=== PATIENT | male | born 1970 | race Two or more races ===

== ENCOUNTER 2021-05-30 08:37 | Outpatient (REF) | payer MEDICAID, SELFPAY ==
--- NOTE | ~2021-05-30 | XR_ITS ---
EXAMINATION: XR HAND, LEFT CLINICAL INFORMATION: Pain COMPARISON: None TECHNIQUE: PA, lateral, and oblique views of the left hand. FINDINGS: The bones and soft tissues are normal. No fracture. Alignment is anatomic. Joint spaces are maintained. No erosions or soft tissue calcifications. XR/XR hand LT min 3V IMPRESSION: Normal left hand.
== END 2021-05-30 08:38 | disposition home or self-care (01) ==
LOC: HO.HOSX 08:37
PROVIDERS: Visit Provider Orthopaedic Surgery
DX: M65.332 Trigger finger, left middle finger (principal); M79.642 Pain in left hand
CPT/HCPCS: 73130; 99202

== ENCOUNTER 2021-06-15 10:36 | Day surgery (SDC) | payer MEDICAID, SELFPAY ==
[2021-06-15 11:12] VITALS: BP 137/98; PULSE 76; RESP 18; TEMP 36.7; O2SAT 98
[2021-06-15 11:14] VITALS: BMI 28.3
--- NOTE | 2021-06-15 13:13 | MHC.SHP ---
Pre-Procedural Eval Section A Date of Service: 06/15/21 The patient is an INPATIENT: No Changes since office visit: No Cold of Flu in the past 2 weeks, No New Medical Problems, No Changes in Medication and No Patient answered all questions The History & Physical has been completed within 30 days and I have reviewed it.: Yes Section B Chief Complaint: trigger finger Allergies: Allergies Allergy/AdvReac Type Severity Reaction Status Date / Time No Known Allergies Allergy Verified 05/30/21 13:23 Plan I have reviewed the history and physical and performed a pertinent physical examination on my patient. No changes have occurred unless specified.
--- NOTE | 2021-06-15 13:14 | W.PM.OPN ---
Operative Note Operative Note Date of Service: 06/15/21 Narrative: Operative Note Preop diagnosis: 1. Left middle finger Trigger finger Postop diagnosis: 1. left middle finger Trigger finger Procedure: 1. left middle finger A1 dave release Surgeon: Roselyn Sr MD Anesthesia: local block using 1% lidocaine with epinephrine Findings: No locking or catching after A1 dave release EBL: Less than 5 mL Tourniquet time: None Specimens: None Complications: None Disposition: Brought to recovery room in stable condition Plan: Follow-up for 10-14 days for wound check and suture removal A prescription for 5 tablets of Vicodin 5/325 was hand written for this patient. Indications: The patient is 51 years old, with a left middle finger trigger finger that has been unresponsive to nonoperative management. The risks and benefits of operative treatment including but not limited to risk of damage to blood vessels, nerves, tendons, infection, persistent pain, persistent symptoms, recurrence or possible need for additional surgery were discussed with the patient and the patient wishes to proceed with surgery. Procedure: Once consent was obtained a local block was performed in the preop area using a combination of 1% lidocaine with epinephrine. The patient was then brought back to the operating suite and placed on the operative table in supine position. A tourniquet was applied to the proximal aspect of the left upper extremity and the limb was prepped and draped in a standard surgical fashion. Once assured that we had a good block, a 1.5 cm oblique incision was made centered over the A1 dave of the left middle finger . The incision was made through the skin to the subcutaneous tissues using a #15 blade. Careful dissection was made down to the level of the A1 dave using tenotomy scissors, with care being taken to protect the nearby neurovascular structures. A longitudinal incision was made in the A1 dave 1st using a #15 blade, then using tenotomy scissors under direct visualization. The A1 dave was noted to be thickened. Following our A1 dave release, we no longer saw any locking or catching of the digit with flexion and extension. Once satisfied with our A1 dave release the wound was copiously irrigated with normal saline and hemostasis was obtained with a brief period of local pressure. The skin edges were reapproximated with some 5.0 nylon suture material and a sterile dressing was applied. The patient appears to have tolerated the procedure well and with no complications. All digits were well vascularized at the conclusion of the case.
[2021-06-15 13:45] VITALS: BP 130/88; PULSE 73; RESP 16; TEMP 36.8; O2SAT 95
== END 2021-06-15 13:59 | disposition home or self-care (01) ==
PROVIDERS: PCP Internal Medicine; Visit Provider Orthopaedic Surgery
PROC: (CPT 26055; principal; 2021-06-15 13:10)
DX: M65.332 Trigger finger, left middle finger (principal); I10 Essential (primary) hypertension; Z79.899 Other long term (current) drug therapy
CPT/HCPCS: 26055; J0171

== ENCOUNTER → 2021-06-28 11:03 | Outpatient (BNVA) | payer MEDICAID, SELFPAY | PROVIDERS: PCP Internal Medicine; Referring Provider Internal Medicine; Visit Provider Physician Assistant | DX: Z47.89 Encounter for other orthopedic aftercare (principal); Z87.39 Personal history of other diseases of the musculoskeletal system and connective tissue; Z12.11 Encounter for screening for malignant neoplasm of colon; I10 Essential (primary) hypertension | CPT/HCPCS: 99202; 99212 ==

== ENCOUNTER 2021-07-02 18:38 | Emergency (ER) | payer MEDICAID, SELFPAY ==
[2021-07-02 18:50] VITALS: BP 137/100; PULSE 85; RESP 18; TEMP 36.9; O2SAT 97; BMI 28.0
--- NOTE | 2021-07-02 20:45 | ED.GENADULT ---
HPI - General Adult General Chief complaint: General Medical Stated complaint: allergic reaction Source: patient Mode of arrival: ambulatory Limitations: language barrier History of Present Illness HPI narrative: 51-year-old male presents with sinus pressure, green thick purulent mucus, and bilateral eye swelling and irritation with exudates. Onset (ago): day(s) (4) Location: head, face and eyes Radiation: non-radiation Severity: moderate Severity scale (1-10): 5 Quality: burning and aching Pain Consistency: constant Relieving factors: none Exacerbating factors: movement Associated symptoms: denies other symptoms Treatments prior to arrival: other (Allergy medications) Related Data Home Medications Medication Instructions Recorded Confirmed chlorthalidone 25 mg tablet 25 mg PO DAILY 05/30/21 lisinopril 40 mg tablet 40 mg PO DAILY 05/30/21 nifedipine 60 mg tablet,extended 60 mg PO DAILY 05/30/21 release 24 hr Previous Rx's Medication Instructions Recorded bisacodyl 5 mg tablet,delayed 10 mg PO ONCE 1 Days #2 tab 06/28/21 release (Dulcolax (bisacodyl)) polyethylene glycol 3350 17 238 g PO ONCE 1 Days #238 g 06/28/21 gram/dose oral powder (Miralax) amoxicillin 875 mg-potassium 1 tab PO Q12H 7 Days #14 tab 07/02/21 clavulanate 125 mg tablet erythromycin 5 mg/gram (0.5 %) eye 0.5 inch OPHTHALMIC (EYE) QID 7 07/02/21 ointment Days #1 g Allergies Allergy/AdvReac Type Severity Reaction Status Date / Time No Known Allergies Allergy Verified 07/02/21 18:50 Review of Systems Review of Systems: Constitutional: No Fever, No Chills ENT/Mouth: Positive sinus head pressure, No Ear Pain, No Hoarseness, No sore throat Eyes: Positive Eye Pain, No Swelling, positive Redness, No Foreign Body Cardiovascular: No Chest Pain, No SOB Respiratory: No Cough, No Dyspnea Gastrointestinal: No Nausea, No Vomiting, No Diarrhea, No abdominal Pain Genitourinary: No Dysuria, No Hematuria Musculoskeletal: positive joint pain, No Myalgias, No Joint Swelling Skin: No Skin lacerations, No rash Neuro: No Weakness, No Numbness, No Paresthesias, No Loss of Consciousness, No Dizziness, No Headache Psych: No Anxiety/Panic, No Depression Heme/Lymph: no easy bruising, no Lymphadenopathy Endocrine: No Polyuria, No Polydipsia Yes all other systems are reviewed and are negative [facility] Past Medical History Attestation statement: The following information was validated with the patient. 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 Oriented X3. No acute distress. Eyes: Pupils equal, round and reactive to light. Bilateral conjunctivitis with purulent exudates. ENT: Pharynx normal. Green nasal mucus. Ethmoid and frontal sinus tenderness to palpation. Neck: Normal inspection. Neck supple. CVS: Normal heart rate and rhythm. Pulses normal. Respiratory: No respiratory distress. Breath sounds normal. Abdomen: Soft and nontender. Skin: Skin warm and dry. Normal skin color. Normal skin turgor. Extremities: No lower extremity edema. Gait well balanced well coordinated. Neuro: No motor deficit. No sensory deficit. Cranial nerves 2-12 intact. Course Course Course Narrative: 51-year-old male presents with upper respiratory symptoms consistent with conjunctivitis and sinusitis. Bilateral conjunctivae are erythematous with purulent exudates noted. Mucous is green with sinus pressure. Consistent with sinusitis. Allergy medications have been ineffective. Will treat with erythromycin bilaterally and Augmentin for sinusitis. 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 Google translate utilized for discharge instructions. Patient verbalized understanding of and agrees to plan of care to discharge home. Verbalized understanding of signs and symptoms indicating need for emergent intervention Medical Decision Making Differential Diagnosis Differential Diagnosis: Influenza, COVID, conjunctivitis, sinusitis, allergic reaction Medical Records Medical records reviewed: Yes I reviewed the patient's medical records. Lab Data Lab results reviewed: Yes I reviewed the patient's lab results. Labs: Lab Results 07/02/21 07/02/21 Range/Units 21:22 21:22 COVID-19 (NAVA) Negative (Negative) COVID-19 Clin Com See Note Influenza Type A (LUIS DANIEL) Negative (Negative) Influenza Type B (LUIS DANIEL) Negative (Negative) Influenza A & B Note See Note Discharge Plan Discharge Clinical Impression: Sinusitis, Conjunctivitis Patient Disposition: Home, Self-Care Instructions: Sinusitis (ED), Conjunctivitis (ED) Additional Instructions: Fue evaluado por presi?n en la lyndsey, enrojecimiento ocular bilateral y lagrimeo con exudado pegajoso. Tiene sinusitis que estamos tratando con Augmentin 875 mg cada 12 horas marilyn los pr?ximos 7 d?as. Tienes conjuntivitis bilateral. Lo estamos tratando con pomada oft?lmica de eritromicina. Aplique ivan negro?a cantidad cada 6 horas en cada omar marilyn los pr?ximos 7 d?as. L?vese las radha antes y despu?s de aplicar el minerva?ento para los ojos. Las pruebas de influenza y COVID fueron negativas. Seguimiento con el m?dico de atenci?n primaria esta semana. Fabian por elegir kobe departamento de emergencias para villareal evaluaci?n. Por favor, mago un seguimiento con el m?dico de atenci?n primaria seg?n sea necesario. Regrese al departamento de emergencias por cualquier s?ntoma nuevo, preocupante o que empeore You were evaluated for head pressure, bilateral eye redness and tearing with goopy exudate. You have sinusitis which we are treating with Augmentin 875 mg every 12 hours for the next 7 days. You have bilateral conjunctivitis. We are treating you with erythromycin eye ointment. Apply small amount every 6 hours to each eye for the next 7 days. Wash your hands before and after applying the eye ointment. Influenza and COVID test were negative. Follow-up with primary care physician this week. Thank you for choosing this emergency department for evaluation. Please follow-up with primary care physician as needed. Return to the emergency department for any new, concerning, or worsening symptoms. Prescriptions: New amoxicillin-pot clavulanate 875-125 mg tablet 1 tab PO Q12H 7 Days Qty: 14 0RF erythromycin 5 mg/gram (0.5 %) ointment 0.5 inch ophthalmic (eye) QID 7 Days Qty: 1 0RF Rx Instructions: Please dispense 2 tubes. One for each eye. Apply small amount to each eye every 6 hours for 7 days. No Action bisacodyl [Dulcolax (bisacodyl)] 5 mg tablet,delayed release (DR/EC) 10 mg PO ONCE 1 Days Qty: 2 0RF Rx Instructions: Take 2 tablets by mouth at 12:00pm the day before your procedure. polyethylene glycol 3350 [Miralax] 17 gram/dose powder 238 g PO ONCE 1 Days Qty: 238 0RF Rx Instructions: Take as directed by mouth the day before your procedure. lisinopril 40 mg tablet 40 mg PO DAILY 0RF chlorthalidone 25 mg tablet 25 mg PO DAILY 0RF nifedipine 60 mg tablet extended release 24hr 60 mg PO DAILY 0RF Interventions: ED Discharge Assessment Last Done: 07/02/21 22:31 Discharge Date/Time: 07/02/21 22:33
[2021-07-02 21:56] LABS: COVID-19 Test Negative (Negative); IDNOW Serial# 08D9AD1C; Influenza A Negative (Negative); Influenza B2 Negative (Negative)
[2021-07-02] MEDS: Amoxicillin/Potassium Clav 875 MG TABLET PO (22:00)
[2021-07-02] MEDS: Erythromycin Base 0.5% Oph Oin 1 GM TUBE 1 CM EYE-LEFT ×2 (22:01)
== END 2021-07-02 22:33 | disposition home or self-care (01) ==
PROVIDERS: Nurse Practitioner Family; Emergency Provider Internal Medicine; PCP Internal Medicine
DX: J32.9 Chronic sinusitis, unspecified (principal); H10.9 Unspecified conjunctivitis; Z20.822 Contact with and (suspected) exposure to COVID-19
CPT/HCPCS: 87502; 87635; 99283

== ENCOUNTER 2021-10-25 08:25 | Day surgery (SDC) | payer MEDICAID, SELFPAY ==
[2021-10-19 14:39] VITALS: BMI 28.3
[2021-10-25 08:40] VITALS: BMI 26.9
--- NOTE | 2021-10-25 08:53 | P.CONAN_ITS ---
[facility] Active Problems Active Problems: All Active Problems (Updated 07/03/21 @ 00:02 by Background Daemon) Trigger finger, left middle finger (Acute) Encounter for screening colonoscopy (Acute) High blood pressure (Acute) Past Medical History Medical History (Updated 07/03/21 @ 00:02 by Background Daemon) High blood pressure Family History Family History Father HTN (hypertension) Brother Cancer Family history of problems with anesthesia: No Surgical History Surgical History (Updated 10/19/21 @ 14:44 by Jackie Salomon RN) Hx of hand surgery History of Problems with Anesthesia: No Social History Social History Patient Tobacco Use Status: Never used Tobacco Use of substances other than those prescribed or required for medical reasons: No Are you DNR?: No Advance Directives: No Advance Directives Information Provided: Yes Current occupational status: employed Current occupation: [employer] Allergies Allergy/AdvReac Type Severity Reaction Status Date / Time No Known Allergies Allergy Verified 07/02/21 18:50 Active Medications: Current Medications Lactated Ringer's (Lr) 1,000 mls @ 50 mls/hr IVCONT .Q20H LIDIA Home Medications Medication Instructions Recorded Confirmed Last Taken Type chlorthalidone 25 mg tablet 25 mg PO DAILY 05/30/21 10/19/21 10/25/21 History lisinopril 40 mg tablet 40 mg PO DAILY 05/30/21 10/19/21 06/15/21 History nifedipine 60 mg tablet,extended 60 mg PO DAILY 05/30/21 10/19/21 10/25/21 History release 24 hr Exam Exam Date and Time: October 25, 2021 0853 Height,Weight and Vital Signs: Height 5 ft 9 in Weight 82.554 kg Airway Mallampati Class: II TM Dist: >3cm Neck ROM: Full Heart: rrr Lungs: cta Assessment and Plan Assessment Anesthesia Assessment: Anesthesia Plan Discussed and Chart Reviewed Final Anesthetic Review Family History of Problems with Anesthesia: No History of Problems with Anesthesia: No NPO: Yes ASA Class: II Final Preanesthetic Review: No Changes in Pt Med Stat, Meds/Allgs Chart Reviewed and Consent Obtained/Reviewed Patient Risk: Intermediate Procedure Risk: Intermediate Anesthetic Plan Anesthetic Plan: MAC: Disposition: Standard PACU
[2021-10-25 08:55] VITALS: BP 135/94; PULSE 99; RESP 16; TEMP 36.3; O2SAT 96
[2021-10-25] MEDS: Lactated Ringers 1,000 ML 50 ML IVCONT (09:02)
--- NOTE | 2021-10-25 09:05 | MHC.SHP ---
Pre-Procedural Eval Section A Date of Service: 10/25/21 Section B Chief Complaint: screening Relevant Family History (Specify if Yes): No Relevant Social History: None Present Medications: see Short Stay Collaborative assessment Medical History: Significant History (High blood pressure) History of Previous Operations: Relevant previous surgery/procedure and date(s) (hand surgery) Allergies: Allergies Allergy/AdvReac Type Severity Reaction Status Date / Time No Known Allergies Allergy Verified 07/02/21 18:50 Review of Systems Sugical H&P ROS: Negative: Constitution, Cardiovascular, Respiratory, Neurological, Psychiatric, Hem-Onc, Allergic/Immunologic, Gastrointestinal, Genitourinary, Musculoskeletal, Integumentary, Endocrine and Eyes/Ears/Nose/Throat Exam Surgical H&P Exam: Normal: HEENT, Normal: Heart, Normal: Lungs, Normal: Extremities, Normal: Abdomen, Normal: Skin and Normal: Neurological Plan Diagnosis/Plan: Unchanged I have reviewed the history and physical and performed a pertinent physical examination on my patient. No changes have occurred unless specified.
--- NOTE | 2021-10-25 09:07 | W.PM.OPN ---
Operative Note Operative Note Date of Service: 10/25/21 Narrative: Operative Information Procedure Description: Colonoscopy Indication: screening Anesthesia: MAC COLONOSCOPY Instrument: Olympus variable stiffness pediatric scope 190L Colonoscopy Monitoring: Vital signs and clinical assessment, continuous EKG monitoring, Pulse oximetry, Carbon Dioxide monitoring and blood pressure monitoring were done throughout the procedure. Colon withdrawal time was 8 minutes. Procedure: The patient was placed in the left lateral decubitis position and pre-procedure medications were administered. After a digital rectal examination of the ano-rectum, the video colonoscope was inserted into the rectum and advanced through the colon to the cecum/TI. The colonoscope was slowly withdrawn in a retrograde panoramic fashion and the colon mucosa was carefully examined including a retroflexed view of the rectum. Findings and interventions are described below. Procedure Difficulty: easy Findings: Terminal Ileum-normal Right sided retroflexion-- normal Cecum:normal Ascending Colon: normal Transverse Colon -normal Descending Colon:normal Sigmoid Colon: normal Rectum: Retroflexion with small internal hemorrhoids, grade I Anorectum - normal Colon preparation: [place] Bowel Preparation Scale Right colon; 3 Transverse colon: 3 Left colon; 3 (0 = Unprepared colon segment with mucosa not seen due to solid stool that cannot be cleared. 1 = Portion of mucosa of the colon segment seen, but other areas of the colon segment not well seen due to staining, residual stool and/or opaque liquid. 2 = Minor amount of residual staining, small fragments of stool and/or opaque liquid, but mucosa of colon segment seen well. 3 = Entire mucosa of colon segment seen well with no residual staining, small fragments of stool or opaque liquid) Impression and Post Procedure Diagnosis: internal hemorrhoids Plan: High fiber diet leaflet Avoid straining at stool, epsom salts and sitz bath, anusol supps or cream Repeat Colonoscopy in 10 years or earlier if clinically indicated Above findings were reviewed with the patient and relevant handouts were provided if indicated.
[2021-10-25 09:46] VITALS: BP 116/86; PULSE 95; RESP 14; TEMP 36.2; O2SAT 94
[2021-10-25 10:12] VITALS: BP 124/85; PULSE 81; RESP 18; TEMP 36.2; O2SAT 97
--- NOTE | 2021-10-25 10:56 | PC.NURSE ---
PATIENT DROVE HIMSELF IN AND HIS SIGNIFICANT OTHER CANNOT DRIVE A STANDARD VEHICLE. PT WAS TOLD THAT HE COULD NOT DRIVE HIMSELF HOME. THIS RN CALLED BOTH THE SHUTTLE AND SECURITY TO SEE IF ANY POSSIBILITY OF DRIVING PATIENT HOME. SECURITY CAME UP BUT SHUTTLE NOW HERE. PATIENT BROUGHT DOWN TO SHUTTLE VAN BY SECURITY. PT AND PT'S SIGNIFICANT OTHER AGREED TO THIS PLAN. NOTE: PT ORIGINALLY UPSET AND WANTED TO DRIVE HIMSELF HOME STATING HE ONLY LIVED A BLOCK AWAY. PT AGREEABLE BY TIME OF ACTUAL DISCHARGE.
== END 2021-10-25 11:00 | disposition home or self-care (01) ==
PROVIDERS: PCP Internal Medicine; Visit Provider Internal Medicine Gastroenterology
PROC: 0DJD8ZZ Inspection of Lower Intestinal Tract, Via Natural or Artificial Opening Endoscopic (ICD-10-PCS; CPT 45378; principal; 2021-10-25 09:20)
DX: Z12.11 Encounter for screening for malignant neoplasm of colon (principal); K64.0 First degree hemorrhoids; I10 Essential (primary) hypertension; Z79.899 Other long term (current) drug therapy
CPT/HCPCS: 45378

== ENCOUNTER 2022-05-24 12:23 | Outpatient (REF) | payer MEDICAID, SELFPAY ==
--- NOTE | ~2022-05-24 | US_ITS ---
EXAMINATION: US RETROPERITONEAL LIMITED (RENAL ONLY) CLINICAL INFORMATION: Uncontrolled hypertension. COMPARISON: None available. TECHNIQUE: Real-time imaging of the kidneys. FINDINGS: RIGHT KIDNEY: 7.9 x 5.6 x 5.8 cm (SAG x AP x TRV). The kidney is normal in size, contour, and echogenicity. Renal cortical thickness is normal. No calculi or focal parenchymal lesions. No hydronephrosis. Several punctate parenchymal calcifications are seen which may reflect prior granulomatous disease or small vessel calcification. LEFT KIDNEY: 8.6 x 5.3 x 4.9 cm (SAG x AP x TRV). The kidney is normal in size, contour, and echogenicity. Renal cortical thickness is normal. No focal parenchymal lesions. No hydronephrosis. 3 mm nonobstructing calculus in the upper pole. Several punctate parenchymal calcifications are seen which may reflect prior granulomatous disease or small vessel calcification. US/US renal BI IMPRESSION: There is a 3 mm nonobstructing calculus in the upper pole the left kidney. No hydronephrosis. Tiny parenchymal calcifications bilateral kidneys which may reflect prior granulomatous disease or small vessel vascular calcifications.
== END 2022-05-24 12:24 | disposition home or self-care (01) ==
LOC: HO.US 12:23
PROVIDERS: PCP Internal Medicine; Visit Provider Internal Medicine
DX: I10 Essential (primary) hypertension (principal); N20.0 Calculus of kidney
CPT/HCPCS: 76775

== ENCOUNTER 2022-06-18 19:20 | Emergency (ER) | payer MEDICAID, SELFPAY ==
[2022-06-18 19:21] VITALS: BP 142/112; PULSE 87; RESP 18; TEMP 36.7; O2SAT 96; BMI 25.1
--- NOTE | 2022-06-18 19:24 | ED_ITS ---
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 ? He reports runny nose, nasal congestion and itchy eyes for the last 2 weeks His primary doctor prescribed him some eyedrops that he feels is not working Denies any fevers, chills, chest pain and shortness of breath Related Data Home Medications Medication Instructions Recorded Confirmed chlorthalidone 25 mg tablet 25 mg PO DAILY 05/30/21 lisinopril 40 mg tablet 40 mg PO DAILY 05/30/21 10/19/21 nifedipine 60 mg tablet,extended 60 mg PO DAILY 05/30/21 release 24 hr Previous Rx's Medication Instructions Recorded bisacodyl 5 mg tablet,delayed 10 mg PO ONCE colonoscopy prep 1 06/28/21 release (Dulcolax (bisacodyl)) day #2 tabs polyethylene glycol 3350 17 238 g PO ONCE 1 day #238 grams 06/28/21 gram/dose oral powder (Miralax) amoxicillin 875 mg-potassium 1 tab PO Q12H 7 days #14 tabs 07/02/21 clavulanate 125 mg tablet erythromycin 5 mg/gram (0.5 %) eye 0.5 inch ophthalmic (eye) QID 7 07/02/21 ointment days #1 g cetirizine 5 mg-pseudoephedrine ER 1 tab PO Q12H PRN nasal congestion 06/18/22 120 mg tablet,extended #20 tabs release,12hr (All Day Allergy-D) Allergies Allergy/AdvReac Type Severity Reaction Status Date / Time No Known Allergies Allergy Verified 07/02/21 18:50 Review of Systems Constitutional: Constitutional: Reports headache(s) Eyes: Eyes: Denies blurry vision and Reports itchy eyes ENT: Reports headache(s), Reports nasal discharge and Reports sinus pressure Cardiovascular: Cardiovascular: Denies chest pain and Denies dyspnea Respiratory: Respiratory: Denies dyspnea Gastrointestinal: Gastrointestinal: Denies abdominal pain, Denies nausea and Denies vomiting Neurologic: Reports headache(s) Allergic/Immunologic: Allergic/Immunologic: Reports itchy eyes PMFSH Past Medical History Medical History (Updated 06/18/22 @ 19:25 by Niko Pratt) High blood pressure Surgical History (Updated 11/01/21 @ 09:55 by Isabel Cassidy) Hx of colonoscopy Hx of hand surgery Family History Family History Father HTN (hypertension) Brother Cancer Social History Social History Patient Tobacco Use Status: Never used Tobacco Advance Directives: No Advance Directives Information Provided: No Current occupational status: employed 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 Exam ED Vital Signs: Vital Signs - 24 hr 06/18/22 19:21 Temperature 98.1 F Pulse Rate 87 Respiratory Rate 18 Blood Pressure 142/112 H Pulse Oximetry 96 Oxygen Delivery Method Room Air BMI result Body Mass Index 25.1 Const General: healthy appearing, comfortable, no acute distress, alert and awake Nutritional Appearance: well nourished Orientation/consciousness: patient oriented x3 HENMT Head: Yes normocephalic and Yes atraumatic Throat: Yes posterior oropharynx normal Eyes Eyelids: Yes eyelids normal Pupils: Equal, round and reactive pupils present EOM: EOMs intact bilaterally Neck Neck: Yes full ROM Resp Effort & Inspection: normal respiratory effort, able to speak in complete sentences, no audible wheezes and not labored Auscultation: clear to auscultation bilaterally Cardio Rate: regular rate Rhythm: regular rhythm Skin General skin exam: no rashes or lesions noted and elasticity normal Neuro General: patient oriented x3 Cranial nerves: Yes Equal, round and reactive pupils present and Yes Bilaterally intact EOM present Cognition (Neuro): normal cognition Extrem Other: Moving all extremities well without any obvious deformities Medical Decision Making Medical Decision Making MDM Narrative: A 52-year-old male presents for evaluation of seasonal allergies. No evidence of bacterial infection, no shortness of breath or chest pain. Will treat with Zyrtec D Differential Diagnosis Allergic rhinitis Seasonal allergies Allergic conjunctivitis Sinusitis Discharge Plan Discharge Clinical Impression: Acute seasonal allergic rhinitis Patient Disposition: Home, Self-Care Instructions: Allergies (ED) Additional Instructions: You may use [id number] eyedrops or nasal spray in addition to the Zyrtec D You should use this medication twice daily for the next 7 days Follow-up with your primary doctor Prescriptions: New cetirizine-pseudoephedrine [All Day Allergy-D] 5-120 mg tablet extended release 12 hr 1 tab PO Q12H PRN (Reason: nasal congestion) Qty: 20 0RF No Action amoxicillin-pot clavulanate 875-125 mg tablet 1 tab PO Q12H 7 Days Qty: 14 0RF erythromycin 5 mg/gram (0.5 %) ointment 0.5 inch ophthalmic (eye) QID 7 Days Qty: 1 0RF Rx Instructions: Please dispense 2 tubes. One for each eye. Apply small amount to each eye every 6 hours for 7 days. bisacodyl [Dulcolax (bisacodyl)] 5 mg tablet,delayed release (DR/EC) 10 mg PO ONCE 1 Days Qty: 2 0RF Rx Instructions: Take 2 tablets by mouth at 12:00pm the day before your procedure. polyethylene glycol 3350 [Miralax] 17 gram/dose powder 238 g PO ONCE 1 Days Qty: 238 0RF Rx Instructions: Take as directed by mouth the day before your procedure. lisinopril 40 mg tablet 40 mg PO DAILY chlorthalidone 25 mg tablet 25 mg PO DAILY nifedipine 60 mg tablet extended release 24hr 60 mg PO DAILY Interventions: ED Discharge Assessment Last Done: 06/18/22 19:25
== END 2022-06-18 19:30 | disposition home or self-care (01) ==
PROVIDERS: Emergency Provider Internal Medicine; PCP Internal Medicine
DX: J30.2 Other seasonal allergic rhinitis (principal); Z79.899 Other long term (current) drug therapy
CPT/HCPCS: 99282; 99283

== ENCOUNTER 2024-04-28 10:00 | Outpatient (REF) | payer OTHER, SELFPAY ==
[2024-04-28 14:15] LABS: MANUAL DIFF FLAG NO
[2024-04-28 14:26] LABS: Basophils Absolute Auto 0.1 X10*3/uL (0.0-0.2); Basophils Percent Auto 0.9 % (0-2); Eosinophils Absolute Auto 0.2 X10*3/uL (0.0-0.4); Eosinophils Percent Auto 4.3 % (0-4); Hematocrit 45.3 % (42.0-52.0); Hemoglobin 14.9 g/dl (14.0-18.0); Imm Gran Abs Auto 0.01 X10*3/uL (0.00-0.03); Imm Gran Pct Auto 0.2 % (0.0-0.4); Lymphocytes Absolute Auto 1.8 X10*3/uL (1.2-4.9); Lymphocytes Percent Auto 32.9 % (20-40); Mean Corpuscular HGB Conc 32.9 g/dl (31.0-36.0); Mean Corpuscular Hemoglobin 27.9 pg (27.0-33.0); Mean Corpuscular Volume 84.8 fL (80.0-98.0); Mean Platelet Volume 11.2 fL (9.4-12.4); Monocytes Absolute Auto 0.4 X10*3/uL (0.1-1.2); Monocytes Percent Auto 7.2 % (2-11); Neutrophils Percent Auto 54.5 % (45-73); Platelet Count 214 X10*3/uL (160-400); Red Blood Count 5.34 X10*6/uL (4.60-5.80); Red Cell Distribution Width 13.1 % (11.0-16.0); White Blood Count 5.6 X10*3/uL (4.8-10.8)
[2024-04-28 14:44] LABS: Estimated Average Glucose 103 mg/dL; Hemoglobin A1c % 5.2 % (<6.0)
[2024-04-28 14:58] LABS: Alanine Aminotransferase 30 U/L (0-40); Albumin Level 4.1 g/dL (3.5-5.0); Alkaline Phosphatase 83 U/L (39-117); Anion Gap 11 (12-20); Aspartate Amino Transferase 34 U/L (5-37); Bilirubin Total 0.4 mg/dL (0.0-1.0); Blood Urea Nitrogen 17 mg/dL (9-16); Calcium 9.2 mg/dL (8.4-10.2); Carbon Dioxide 27 mmol/L (22-29); Chloride 107 mmol/L (96-108); Cholesterol 142 mg/dL (<200); Estimated Glomerular Filt Rate > 60; Glucose Random 85 mg/dL (60-115); HDL Cholesterol 55 mg/dL (>40); LDL Cholesterol Calculated 78 mg/dL (<100); Potassium 3.3 mmol/L (3.3-5.1); Sodium 142 mmol/L (135-145); TSH reflex Free T4 1.29 uIU/mL (0.32-4.0); Total Protein 7.7 g/dL (6.5-8.0); Triglycerides 47 mg/dL (<150)
[2024-04-29 08:34] LABS: HIV AB/AG Nonreactive (Nonreactive); HIV Num 1 0.08 S/CO (0.00-0.99); ~HepC Num1 0.12 S/CO (0.00-0.79); ~Hepatitis C Antibody Nonreactive (Nonreactive)
== END 2024-04-28 10:01 | disposition home or self-care (01) ==
LOC: HO.CHCLDS 10:00
PROVIDERS: Visit Provider Internal Medicine
DX: I10 Essential (primary) hypertension (principal); Z13.1 Encounter for screening for diabetes mellitus
CPT/HCPCS: 36415; 80053; 80061; 83036; 84443; 85025; 86803; 87389

== ENCOUNTER → 2024-08-12 13:37 | Outpatient (AMB) | payer OTHER, SELFPAY ==
--- NOTE | 2024-08-12 13:42 | HO.NEPHOV ---
Vital Signs 08/12/24 13:43 08/12/24 13:55 Height 5 ft 9 in Weight 180 lb BMI 26.6 BP 130/104 H 130/100 H Blood Pressure Location Lt brachial Rt brachial Position Sitting Sitting Pulse 86 Pulse Source Pulse Oximeter Pulse Oximetry (%) 96 Oxygen Delivery Method Room Air Intake Visit Reasons: ENP: Primary Hypertension-Conf Ticket Dispatcher Required: Yes Ticket Dispatcher Name: [email or web address] [id number] Accompanied by: Self / Same As Patient Allergies Seasonal Allergies Allergy (Unknown, Verified 08/12/24 13:45) Unknown Medication List - Last Reconciled 08/12/24 by Shemar Turner MD cetirizine-pseudoephedrine 5-120 mg ER (All Day Allergy-D) 1 tab PO Q12H PRN chlorthalidone 25 mg PO DAILY erythromycin 0.5 inches ophthalmic (eye) QID 7 days lisinopril 40 mg PO DAILY neomycin-polymyxin B-dexameth 3.5 mg/g-10,000 unit/g-0.1 % ophthalmic (eye) QID PRN nifedipine ER 90 mg PO DAILY HPI Comments Details: The patient is a 54-year-old male referred for HTN and ABPM The patient reports having hypertension since 2019, approximately five years ago. He is currently on three antihypertensive medications, with the most recent adjustment being an increased dosage of nifedipine two weeks ago. The patient takes his medications at different times throughout the day, as advised by his previous physician. He has been taking a diuretic at night, which has resulted in frequent nocturia, and was advised to take it in the morning instead. The patient denies any issues with urination during the day and reports no use of tobacco, alcohol, or recreational drugs. The patient's blood pressure was recorded at 130/100 mmHg during the visit, with concern noted for the diastolic pressure remaining elevated. He was advised to engage in regular exercise and reduce salt intake to aid in blood pressure management. 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/ [employer] Const Denies fever(s) and Denies weight loss Card Denies chest pain Resp Denies cough and Denies hemoptysis GI Denies abdominal pain, Denies diarrhea and Denies nausea Musc Denies back pain Neuro Denies focal weakness Physical Exam Vital Signs: Last Vital Signs Pulse 86 08/12/24 13:43 BP 130/100 H 08/12/24 13:55 Pulse Ox 96 08/12/24 13:43 Oxygen Delivery Method Room Air 08/12/24 13:43 BMI result Body Mass Index 26.6 Results Reviewed Nephrology Results: Hgb, (14.0-18.0) 14.9 g/dl 04/28/24 WBC, (4.8-10.8) 5.6 X10*3/uL 04/28/24 Plt Count, (160-400) 214 X10*3/uL 04/28/24 Sodium, (135-145) 142 mmol/L 04/28/24 Potassium, (3.3-5.1) 3.3 mmol/L 04/28/24 Chloride, (96-108) 107 mmol/L 04/28/24 Carbon Dioxide, (22-29) 27 mmol/L 04/28/24 BUN, (9-16) 17 mg/dL H 04/28/24 Creatinine, (0.5-1.4) 1.09 mg/dL 04/28/24 Calcium, (8.4-10.2) 9.2 mg/dL 04/28/24 Renal US 05/24/22 Assessment & Plan Assessment & Plan (1) High blood pressure: Code(s): I10 - Essential (primary) hypertension Category: Medical Plan Young man with difficult to control HTN currently on 3 medications - Take the diuretic in the morning to avoid frequent nighttime urination. - Engage in regular physical activity and follow a low-sodium diet to help control blood pressure. - Attend scheduled tests for blood, urine, and kidney ultrasound as instructed. - Will arrange 24-hour blood pressure monitoring. - Return for a follow-up appointment in one month. Orders: Orders Basic Metabolic Panel Today I10 - Essential (primary) hypertension UA and rflx microscopic Today I10 - Essential (primary) hypertension Total Protein Urine Random Today I10 - Essential (primary) hypertension Creatinine Urine Today I10 - Essential (primary) hypertension US renal BI Today I10 - Essential (primary) hypertension AMB 24 HR B/P Monitor PLACEMENT Today I10 - Essential (primary) hypertension Coding Level of Care Code New Pt Level 4 (70596) Diagnoses High blood pressure I10
[2024-08-12 13:43] VITALS: BP 130/104; PULSE 86; O2SAT 96; BMI 26.6
[2024-08-12 13:55] VITALS: BP 130/100
--- OUTSIDE RECORDS SUMMARY | 2024-08-12 14:12 | XMS_ITS | Encounter Summary ---
Author Organization [employer] Address [address] [place] [address] 7 [place] [address] Care Team Providers Care Retail Cashier Name Role Phone Tam Juarez MD Primary Care Prov ider Encounter Details Date Type Department Care Team (Late Contact Info) Description 01/01/2023 Abstract [facility] MEDICINE [address] [place] [address] Carmela Amin Social History Tobacco Use Types Packs/Day Years Used Date Smoking Tobacco: Never Smokeless Tobacco: Never Alcohol Use Standard Drinks/Week Comments Never 0 (1 standard drink = 0.6 oz pur e alcohol) Sex and Gender Information Value Date Recorded Sex Assigned at Male 12/11/2021 10:36 AM EDT Legal Sex Male 10:36 AM EDT Gender Identity Choose not to disclose 10:36 AM EDT Sexual Orientation Choose not to disclose 2021 10:36 AM EDT documented as of this encounter Plan of Treatment Upcoming Encounters Date Type Department Care Team (Late st Contact Info) Description 09/11/2024 9:30 AM EDT Telemedicine [facility] PEDS [address] [place], [place] [phone] Tam Juarez MD [address] [place], [place] [phone] documented as of this encounter Procedures Procedure Name Priority Date/Time Associated Diagnosis Comments COLONOSCOPY Routine 10/25/2021 documented in this encounter Results * Colonoscopy (10/25/2021) Colonoscopy Normal Normal Narrative Carmela Amin - 10/25/2021 Repeat in 10 years us Historical Provider HEALTH MAINTENANCE Final Result documented in this encounter Visit Diagnoses Not on filedocumented in this encounter Care Teams Retail Cashier Relationship Specialty Start Date End Date Tam Juarez MD [address] [place] [id number] PCP - General Internal Medicine 01/16/22 documented as of this encounter
--- OUTSIDE RECORDS SUMMARY | 2024-08-12 14:12 | XMS_ITS | Clinical Summary ---
Author Organization [facility] Facility Address [address] [place] [id number] Care Team Providers Care Health Information Tech Name Role Phone Tam Ca Primary Care Provider Medications Zoster Vac Recomb Adjuvanted (Shingrix) 50 MCG/0.5ML reconstituted suspension Inject 0.5 mL into the shoulder, thigh, or buttocks 2 Active NIFEdipine XL (PROCARDIA XL) 60 MG 24 hr tablet Take 60 mg by mouth in the morning. 3 Active lisinopril 40 MG tablet Take 40 mg by mouth in the morning. 3 Active lidocaine (XYLOCAINE) 5 % ointment Apply topically at bed time 1 Active chlorthalidone 25 MG tablet Take 25 mg by mouth in the morning. 3 Active Active Problems Problem Noted Date Diagnosed Date Seasonal allergy 06/15/2022 10/11/2022 Overview (10/11/2022): Last Assessment & Plan: Patient refers that while inside his home his symtpoms resolve, is when he gets outside exposure, will provide Flonase spray and ketotifen drops for his eyes. Seasonal allergic conjunctivitis 06/15/2022 10/11/2022 Primary hypertension 01/16/2022 10/11/2022 Overview (10/11/2022): Last Assessment & Plan: Today was above target, he refers mos of the time is borderline elevated, patient is CCB/KIESHA/Thiazide, without much control, will order renal ultrasound and will refer to nephrology for evaluation Immunizations Immunization Administration Dates Next Due Moderna SARS-COV-2 07/28/2020,06/30/2020 Shingrix 09/21/2021 Tdap 09/21/2021 Social History Tobacco Use Types Packs/Day Years Used Date Smoking Tobacco: Never Assessed Sex and Gender Information Value Date Recorded Sex Assigned at Not on file Legal Sex Male 8:46 AM EDT Gender Identity Not on file Sexual Orientation Not on file Plan of Treatment Health Maintenance Due Date Last Done Comments Hepatitis B Vaccine (1 of 3 - 19+ 3-dose series) 03/03 Colorectal Cancer Screening: Annual FOBT 2020 Colorectal Cancer Screening: Colonoscopy 2020 Colorectal Cancer Screening: Sigmoidoscopy 2020 Pneumococcal Vaccine: 50+ Years (1 of 1 - PCV) 022 Influenza Vaccine (Season Ended) 2024 Insurance Medicaid [place] Care Teams Health Information Tech Relationship Specialty Start Date End Date Tam Ca PCP - General Internal Medicine 05/15/22
== END ==
LOC: HO.HKAM 13:37
PROVIDERS: PCP Internal Medicine; Visit Provider Internal Medicine Hypertension Specialist
DX: I10 Essential (primary) hypertension (principal)
CPT/HCPCS: 99204

== ENCOUNTER 2024-08-20 11:02 | Outpatient (REF) | payer OTHER, SELFPAY ==
--- NOTE | ~2024-08-20 | US_ITS ---
EXAMINATION: Ultrasound renal bilaterally. CLINICAL INFORMATION: Hypertension. COMPARISON: May 24, 2022. TECHNIQUE: Real-time ultrasound kidneys using grayscale technique. FINDINGS: Right kidney: 9 x 6 x 6 cm. Volume: 164 cc. Normal echotexture. Normal renal cortical thickness. No hydronephrosis. No gross cystic or solid lesion detected. Left kidney: 9 x 6 x 6 cm. Volume: 171 cc. Normal echotexture. Normal renal cortical thickness. No hydronephrosis. No solid or cystic lesion detected. US/US renal BI IMPRESSION: Normal exam. Electronically signed by: Kirill Kelly MD 08/20/2024 11:37 AM EDT
--- OUTSIDE RECORDS SUMMARY | 2024-08-20 11:46 | XMS_ITS | Clinical Summary ---
Author Organization [facility] Facility Address [address] [place] [id number] Care Team Providers Care Internal Communications Writer Name Role Phone Tam Ca Primary Care Provider [phone] Medications Zoster Vac Recomb Adjuvanted (Shingrix) 50 [...] of 1 - PCV) 022 Influenza Vaccine (#1) 2024 [place] Care Teams Internal Communications Writer Relationship Specialty Start Date End Date Tam Ca PCP - General Internal Medicine 05/15/22
--- OUTSIDE RECORDS SUMMARY | 2024-08-20 11:46 | XMS_ITS | Encounter Summary ---
Author Organization [employer] Address [address] [place] [address] [address] [place] [address] Care Team Providers Care Retoucher Name Role Phone Tam Juarez MD Primary Care Prov ider Encounter Details Date Type Department Care Team (Late Contact Info) Description 01/01/2023 Abstract [facility] MEDICINE [address] [place] [address] Carmela Amin Social History Tobacco Use Types [...] Care Team (Late st Contact Info) Description 09/10/2024 1:45 PM EDT Telemedicine [facility] MED [facility] PEDS [address] [place], [place] [phone] Tam Juarez MD [address] [place], [place] [phone] documented as of this encounter Procedures Procedure Name Priority Date/Time Associated Diagnosis Comments COLONOSCOPY Routine 10/25/2021 documented in this encounter Results * Colonoscopy (10/25/2021) Colonoscopy Normal Normal Narrative Carmela Amin - 10/25/2021 Repeat in 10 years us Historical Provider HEALTH MAINTENANCE Final Result documented in this encounter Visit Diagnoses Not on filedocumented in this encounter Care Teams Retoucher Relationship Specialty Start Date End Date Tam Juarez MD [address] [place] [id number] PCP - General Internal Medicine 01/16/22 documented as of this encounter
== END 2024-08-20 11:03 | disposition home or self-care (01) ==
LOC: HO.US 11:02
PROVIDERS: PCP Internal Medicine; Visit Provider Internal Medicine Hypertension Specialist
DX: I10 Essential (primary) hypertension (principal)
CPT/HCPCS: 76775

== ENCOUNTER → 2024-08-20 11:04 | Outpatient (BNV) | payer OTHER, SELFPAY | PROVIDERS: PCP Internal Medicine; Visit Provider Radiology Diagnostic Radiology | DX: I10 Essential (primary) hypertension (principal) | CPT/HCPCS: 76775 ==